=== PATIENT | female | born 1965 | race Caucasian/White ===

== ENCOUNTER 2023-10-13 08:39 | Emergency (ER) | payer OTHER, SELFPAY ==
[2023-10-13 08:48] VITALS: BP 155/70; PULSE 97; RESP 16; TEMP 36.3; O2SAT 99; BMI 35.2
--- NOTE | 2023-10-13 08:56 | DI.RAD.S_ITS ---
PROCEDURE: XR CHEST 1V INDICATIONS: Shortness of breath TECHNIQUE: One view of the chest was acquired. COMPARISON: None. FINDINGS: Surgical changes and devices: None. Lungs and pleura: Lungs are clear. No pleural effusions or pneumothorax. Mediastinum: Mediastinal contours appear normal. Heart size is normal. Bones and chest wall: No suspicious bony lesions. Overlying soft tissues appear unremarkable. IMPRESSION: No acute cardiopulmonary abnormality is seen. Dictated by: Gabe Marques M.D. on 10/13/2023 at 9:20 Approved by: Gabe Marques M.D. on 10/13/2023 at 9:20
--- NOTE | 2023-10-13 10:11 | ED_ITS ---
HPI - Asthma General Chief Complaint: Asthma Stated Complaint: cough Time Seen by Provider: 10/13/23 09:19 Source: patient Mode of arrival: Ambulatory History of Present Illness HPI Narrative: Patient is a 50-year-old female history of adult onset asthma presenting today with ongoing cough. She reports that for the last 6 weeks she has had a nonproductive asthmatic like. She was seen evaluated walk-in clinic she was put on 5 days of prednisone which she said helped some. However she continues to cough she really wants an inhaled steroid she says that usually helps the most. She denies fever or chills. She now has pain all around her diaphragm from coughing so hard it hurts every time she breathes or moves. She feels like her chest is tight but it has been ongoing. Does work has a nurse at [employer]. She is visiting here from [place] she reports that the weather has been different here than where she lives. She denies ever being intubated or hospitalized for her asthma. Related Data Home Medications Medication Instructions Recorded Confirmed albuterol sulfate 90 mcg/actuation 2 puff inhalation Q6H PRN 09/12/23 09/12/23 aerosol inhaler Previous Rx's Medication Instructions Recorded benzonatate 200 mg capsule 200 mg PO BID PRN cough #30 caps 10/01/23 budesonide-formoterol HFA 160 1 inh inhalation 6XD PRN SOB, 10/01/23 mcg-4.5 mcg/actuation aerosol asthma cough #10.2 grams inhaler fluticasone 250 mcg-salmeterol 50 1 inh inhalation Q12H #60 ea 10/13/23 mcg/dose blistr powdr for inhalation (Arturoxangy Inhub) prednisone 10 mg tablet 10 mg PO DAILY #30 tabs 10/13/23 Allergies Allergy/AdvReac Type Severity Reaction Status Date / Time Sulfa (Sulfonamide Allergy Unknown Verified 10/01/23 16:47 Antibiotics) Patient History Social History Smoking Status: Never smoker Smoking Status: Never smoker alcohol intake frequency: 0-2 drinks per day Substance Use Type: does not use Exam Initial Vital Signs Initial Vital Signs: Vital Signs Temperature 97.3 F L 10/13/23 08:48 Pulse Rate 97 H 10/13/23 08:48 Respiratory Rate 16 10/13/23 08:48 Blood Pressure 155/70 H 10/13/23 08:48 Pulse Oximetry 99 10/13/23 08:48 Oxygen Delivery Method Room Air 10/13/23 08:48 GENERAL: Alert well-appearing 50-year-old female HEENT: Head atraumatic,EOMI, pupils reactive, face symmetric, moist mucous membranes CARDIOVASCULAR: Regular rate and rhythm without murmurs, rubs or gallops. RESPIRATORY: No difficulty breathing breath sounds clear bilaterally she does cough quite a bit while talking ABDOMEN: Soft, nontender. Normoactive bowel sounds all 4 quadrants. No guarding or rebound. EXTREMITIES: Normal range of motion, no clubbing or edema. Neurovascularly intact NEUROLOGICAL: Alert and oriented x4. SKIN: Warm, dry, no laceration, no petechiae, no rashes or lesions. Course Orders Ordered: ED Orders 10/13/23 08:56 XR chest 1V Stat Complete Blood Count AUTO DIFF Stat Comprehensive Metabolic Panel Stat Lactate (Lactic Acid) Stat NT-proBNP (BNP-Adult 18+) Stat Prothrombin Time INR Stat Troponin I Stat RT Consult Eval and Treat NOW Discontinued Medications Albuterol (Albuterol 2.5 Mg/3 Ml Neb (Adult)) 2.5 mg INH NOW ONE Stop: 10/13/23 10:17 Last Admin: 10/13/23 10:34 Dose: 2.5 mg Documented By: SAT Vital Signs Vital signs: Vital Signs - 8 hr 10/13/23 08:48 Temperature 97.3 F L Pulse Rate 97 H Respiratory Rate 16 Blood Pressure 155/70 H Pulse Oximetry 99 Oxygen Delivery Method Room Air MDM - Asthma Imaging Data Chest x-ray: Radiologist's Impression: PROCEDURE: XR CHEST 1V INDICATIONS: Shortness of breath TECHNIQUE: One view of the chest was acquired. COMPARISON: None. FINDINGS: Surgical changes and devices: None. Lungs and pleura: Lungs are clear. No pleural effusions or pneumothorax. Mediastinum: Mediastinal contours appear normal. Heart size is normal. Bones and chest wall: No suspicious bony lesions. Overlying soft tissues appear unremarkable. IMPRESSION: No acute cardiopulmonary abnormality is seen. Dictated by: Gabe Marques M.D. 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 She really just wants an inhaled steroid. She has no significant respiratory distress however she does cough quite a bit while talking. She has no real wheezing. We talked about further workup such as cardiac workup however she declines that at this time which I think is okay and reasonable. Her chest x-ray has been reviewed and negative. Discharge Plan Departure Patient Disposition: Home Clinical Impression: Asthma with acute exacerbation Instructions: DI for Asthma -- Adult Activity Restrictions/Additional Instructions: *You have been diagnosed with asthma *What to do: I hope that the inhaled steroid help *Continue to take medications as directed Advair twice a day Albuterol every 4 hours as needed Prednisone 40 mg once a day for 3 days, 30 mg once a day for 3 days, 20 mg once a day for 3 days, 10mg for 3 days *Follow up with your primary care provider in 2-3 days or call [phone] *Return to ER if you should have increasing shortness of breath worsening chest pain or any new, worsening or concerning symptoms Prescriptions: New prednisone 10 mg tablet 10 mg PO DAILY Qty: 30 0RF Rx Instructions: day 1-3: 40 mg once a day day 4-6: 30 mg once a day day 7-9: 20 mg once a day day 10-12: 10 mg once a day fluticasone propion-salmeterol [Wixela Inhub] 250-50 mcg/dose blister with device 1 inh inhalation Q12H Qty: 60 0RF No Action albuterol sulfate 90 mcg/actuation HFA aerosol inhaler 2 puff inhalation Q6H PRN budesonide-formoterol 160-4.5 mcg/actuation HFA aerosol inhaler 1 inh inhalation 6XD PRN (Reason: SOB, asthma cough) Qty: 10.2 0RF benzonatate 200 mg capsule 200 mg PO BID PRN (Reason: cough) Qty: 30 0RF Referrals: Miscellaneous,Doctor, MD [Primary Care Provider] - Stand Alone Forms: Patient Portal/API
[2023-10-13] MEDS: ALBUTEROL 2.5 MG/3 ML NEB (ADULT) INH (10:34)
[2023-10-13 10:35] VITALS: PULSE 83; RESP 18; O2SAT 100
[2023-10-13 10:39] VITALS: BP 157/70; PULSE 86; RESP 20; TEMP 37; O2SAT 100
== END 2023-10-13 10:40 | disposition home or self-care (01) ==
PROVIDERS: Emergency Provider Emergency Medicine
DX: J45.901 Unspecified asthma with (acute) exacerbation (principal)
CPT/HCPCS: 71045; 94150; 94640; 99283; J7613